=== PATIENT | female | born 1980 | race Caucasian/White ===

== ENCOUNTER 2017-01-29 08:46 | Inpatient (IN) | payer OTHER ==
[~2017-01-29] VITALS: Ht 167.6 cm; Wt 83.0 kg
[2017-01-29] MEDS ORDERED: Lactated Ringer's 1,000 ML IV PRN (09:29)
[2017-01-29] MEDS ORDERED: Oxytocin 30 Units/500 mL LR 30 UNITS in IV Premix 1 EACH IV PRN ×3 (09:30→21:15)
[2017-01-29] MEDS ORDERED: Oxytocin 10 Unit/mL Inj IM PRN ×2 (09:30→21:15)
[2017-01-29] MEDS ORDERED: Methylergonovine 0.2 mg/mL Inj IM PRN ×2 (09:30→21:15)
[2017-01-29] MEDS ORDERED: Sodium Chloride LOK Flush 10 mL Syringe IVFLUSH PRN (09:30)
[2017-01-29] MEDS ORDERED: Carboprost 250 mCg/mL Inj IM PRN ×2 (09:30→21:15)
[2017-01-29] MEDS ORDERED: Hemorrhage Kit, Post Partum XX ONE ×2 (09:30→21:15)
[2017-01-29 11:15] LABS: Mean Corpuscular Hemoglobin 33.3 pg (27.0-35.0); Mean Corpuscular Volume 95.8 fL (81-100)
--- NOTE | 2017-01-29 16:48 | HP ---
[address] [address] HISTORY AND PHYSICAL PATIENT: BRANDT PHELPS : 1980 MR#: [id number] ADMIT: 01/29/2017 JOB ID: [id number] A 36-year-old female. She is 3, para 2-0-0-2. She is at 39 weeks . She presented to [facility] because of rupture of membrane at 6:00. It was confirmed of rupture of membranes with clear fluid. She is perez irregularly and the heart tracing was category 1. This is a patient who has been having regular care at [facility]. During her care she was noticed to be Rh negative and she got her RhoGAM shot. She was noticed to be HBsAg negative, HPV negative, HIV negative, Rubella immune, varicella immune, GBS negative. She passed her GCT. During the care, it was also noticed her baby is a large baby. The last fundal height measurement was 42. ALLERGIES: She has no known drug allergies. PAST MEDICAL HISTORY: Declined. PAST SURGICAL HISTORY: She has gallbladder removal, 2014. Declined other surgeries. SOCIAL HISTORY: She is not smoking. Declines alcohol using and declined drug usage. OBSTETRICAL HISTORY: She had one vaginal delivery, 2008, 9-pound baby, and then she had a for breech presentation, 2011, and now this is her third . GYNECOLOGIC HISTORY: Not complicated. PHYSICAL EXAMINATION: She is afebrile. Her pulse and blood pressure in normal range. Cardiac: RRR. No murmur. Pulmonary: Bilaterally clear. Abdomen soft, gravid. Irregular contractions. Nontender uterus. Uterus well relaxed between contractions. Cervical examination by triage nurse was 2, 80, -2, clear fluid. Extremities nontender. ASSESSMENT AND PLAN: A 36-year-old female, 3, para 2-0-0-2, with history of one vaginal delivery and then on section. Desire for vaginal delivery. 1. Patient has signed consent form for TOLAC I discussed with her again about the benefits, risks of trial of labor after section. The patient is still desires for TOLAC. 2. She can get epidural for pain if she desires to. 3. She ruptured at 6:30 with clear fluid with irregular contractions. If she is not getting regular contractions at 12:30 will start her on Pitocin induction. The patient was aware that she has a scar and she has large baby, and we discussed about we will have close monitoring of any signs of rupture of uterus.
[2017-01-29] MEDS ORDERED: fentaNYL 2 mCg/mL-Bupivicaine 0.125% 100 mL Premix EPIDURAL ONE (20:30)
[2017-01-29] MEDS ORDERED: Lactated Ringer's 1,000 ML IV SCH (21:12)
[2017-01-29] MEDS ORDERED: LANOlin HPA 7 Gm Ointment TOPICAL PRN (21:15)
[2017-01-29] MEDS ORDERED: Witch Hazel-Glycerin Pads TOPICAL PRN (21:15)
[2017-01-29] MEDS ORDERED: Benzocaine (Dermoplast) 20% 60 Gm Spray TOPICAL PRN (21:15)
--- NOTE | 2017-01-30 00:59 | OP ---
[address] [address] OPERATIVE REPORT PATIENT: BRANDT PHELPS : 1980 MR#: [id number] ADMIT: 01/29/2017 JOB ID: [id number] DATE OF SURGERY: 01/29/2017 SURGEON: Sarahi Castro MD PREOPERATIVE DIAGNOSIS(ES): POSTOPERATIVE DIAGNOSIS(ES): DELIVERY NOTE: This is a 36-year-old female. She is 3, para 3, now with history of one vaginal delivery, one for breech and a trial of labor after for this delivery. She was admitted for rupture of membranes with irregular contractions. Pitocin started around 12 o'clock today. She has been having category 1 tracing. She is taking her labor pain well. Around 8:30, the patient asked for epidural for pain and noted to be fully dilated at +1 station, and had a strong urge to push. The patient was instructed to push and she had good effort to push. The was delivered at MARICRUZ position. The shoulder and chest delivered without difficulty. The infant was placed on the mother's chest, with good tone and spontaneous crying. Delayed cord clamping was performed after position of the cord. Then, the regular cord blood collected. Placenta delivered spontaneously completely and examined, and noticed a three-vessel cord. After the placenta delivered, the uterus was well contracted. The perineum was examined. No significant laceration. The patient tolerated the procedure well. All instrument, needles, laps, and gauzes counted correct twice. This is a female infant. The weight was not available at dictation. The score was 9 and 9. The EBL at the end of the delivery was 150. MTDD
[2017-01-30 07:35] LABS: Mean Corpuscular Hemoglobin 33.4 pg (27.0-35.0); Mean Corpuscular Volume 94.9 fL (81-100)
--- NOTE | 2017-01-31 11:54 | PCM.DIOB ---
Obstetrical Disch Instruction Dates of Hospitalization Date of Hospital Admission January 29, 2017 at 09:43 Providers Admitting Physician: Sarahi Castro MD Primary Care Physician: Keo Telles MD Attending Physician: Sarahi Castro MD Diet Discharge Diet: No restrictions Activity Discharge Activity-General: Pelvic Rest for 6 weeks, Be up and about, Balance rest and activity, No lifting >15 pounds for 2 weeks Dressing and Incisional Care Hygiene: January shower, NO bathtub, hot tub or whirlpool, Perineal care, Sitz bath , Dermoplast spray, Witch Erlinda pads Follow Up Plan Follow-up Provider (F9): Sarahi Castro MD Follow-up appointment: Weeks (6) Call your provider for: Fever or Chills, Shortness of breath, Heavy vaginal bleeding, Epigastric pain, Red painful breasts Opal Mackay MD January 31, 2017 11:54
[2017-01-31] MEDS ORDERED: IBUP800T28 PO (11:55)
[2017-01-31] MEDS ORDERED: DOCU-41 PO (11:55)
--- NOTE | 2017-01-31 14:07 | DIS ---
[address] [address] DISCHARGE SUMMARY PATIENT: BRANDT PHELPS : 1980 MR#: [id number] ADMIT: 01/29/2017 JOB ID: [id number] DIS: 01/31/2017 ADMISSION DIAGNOSES: 1. A 36-year-old G 3, P 2-0-0-2 female at 39 weeks gestation admitted in active labor. 2. History of section x1 in a previous due to breech presentation, desiring trial of labor after section. 3. Advanced maternal age. DISCHARGE DIAGNOSES: 1. A 36-year-old G 3, P 2-0-0-2 female at 39 weeks gestation admitted in active labor. 2. History of section x1 in a previous due to breech presentation, desiring trial of labor after section. 3. Advanced maternal age. PROCEDURES PERFORMED: Vaginal after section of a live born female , born on the evening hours of January 29, 2017 with Apgars of 9 at one minute, 9 at five minutes. weight was approximately 8 pounds 14 ounces. REASON FOR ADMISSION/HOSPITAL COURSE: This is a 36-year-old G 3, P 2-0-0-2 female presented at 39 weeks gestation complaining of regular uterine contractions. She desired a trial of labor after section after she had had a previously in her last due to breech presentation. Her is otherwise complicated by advanced maternal age as well as Rh negative status. laboratory data showed her blood type was O negative. She was hep B surface antigen negative, HIV negative, rubella immune, varicella immune and GBS negative. She was admitted on the morning of the after complaining of rupture of membranes and found to be ruptured. The Pitocin was started around noon the same day and she progressed to complete around 8 p.m. that evening. Epidural was placed for pain relief. She pushed and delivered the liveborn female . Please see the operative report regarding this for details. She did well. By day #2, she was tolerating a regular diet, voiding and ambulating well on her own and her pain was well controlled. Her infant was kept for 48 hours of observation due to grunting following delivery and transient tachypnea of the and so she was discharged to boarder status. LABORATORY DATA: On admission her white count is 8.8, her hemoglobin 13.6, platelets are 112. By day #1, her white count was 12.9, hemoglobin was 13.0 and her platelet count was 110. Baby's blood type was A negative and RhoGAM was not indicated. INSTRUCTIONS AT DISCHARGE: The patient was advised to remain at pelvic rest for six weeks including no tampons, douching or intercourse. She was asked to call with any signs or symptoms of infection including bleeding greater than a pad per hour, fevers or chills with temperature greater than 100.5 degrees, severe pain or malodorous vaginal discharge. MEDICATIONS AT DISCHARGE: Included: Ibuprofen 800 mg p.o. q.8 hours p.r.n. pain as well as Colace 100 mg p.o. b.i.d. She was asked to continue her vitamins as prescribed. As noted above, she was Rh negative as was her baby and so RhoGAM was not indicated. She was both rubella and varicella immune. All questions and concerns of the patient were answered. She was deemed stable for discharge to boarder status on day #2. RYAN
[2017-01-31 14:58] VITALS: BP 111/64; PULSE 68; RESP 12
== END 2017-01-31 17:00 | disposition home or self-care (01) | DRG 775 ==
LOC: FBCO 08:46 → FBC 09:43
PROVIDERS: ADMIT Obstetrics & Gynecology; ATTEND Obstetrics & Gynecology
PROC: 10E0XZZ Delivery of Products of Conception, External Approach (ICD-10-PCS; principal; 2017-01-30)
PROC: 10907ZC Drainage of Amniotic Fluid, Therapeutic from Products of Conception, Via Natural or Artificial Opening (ICD-10-PCS; 2017-01-30)
DX: O34.211 Maternal care for low transverse scar from previous cesarean delivery (principal); O09.523 Supervision of elderly multigravida, third trimester; Z3A.39 39 weeks gestation of pregnancy; Z37.0 Single live birth